=== PATIENT | male | born 1940 | race Caucasian/White ===

== ENCOUNTER 2023-01-19 09:54 | Day surgery (SDC) | payer MEDICARE, BC ==
[~2023-01-19 09:54] MED LIST: LACTATED RINGERS 1,000 ML IV SCH; SODIUM CHLORIDE 0.9% 1,000 ML IV SCH
[2023-01-19] MEDS ORDERED: SODIUM CHLORIDE 0.9% 1,000 ML IV ONE (10:07)
[2023-01-19 10:21] LABS: Basophils # (A) 0.1 k/uL (0-0.2); Basophils % (A) 1 %; Eosinophils # (A) 0.1 k/uL (0-0.7); Eosinophils % (A) 2 %; HCT 38.9 % (39.0-53.0); HGB 12.8 gm/dL (13.0-17.5); Lymphocytes % (A) 32 %; MCH 27.7 pg (25.0-35.0); MCHC 32.8 g/dL (31.0-37.0); MCV 84.7 fL (80.0-100.0); Monocytes # (A) 0.3 k/uL (0-1.0); Monocytes % (A) 5 %; Neutrophils # (A) 3.5 k/uL (1.3-7.7); Neutrophils % (A) 57 %; Platelet Count 355 k/uL (150-450); RDW 13.6 % (11.5-15.5); WBC 6.2 k/uL (3.8-10.6)
[2023-01-19 10:41] LABS: Calcium 9.4 mg/dL (8.4-10.2); Potassium 4.3 mmol/L (3.5-5.1)
[2023-01-19] MEDS ORDERED: MIDAZOLAM 2 MG/2 ML VIAL ONE (14:45)
[2023-01-19] MEDS ORDERED: fentaNYL (PF) 50 MCG/ML 2 ML AMP ONE (14:45)
[2023-01-19] MEDS ORDERED: KETAMINE 10 MG/ML 20 ML VIAL ONE (14:45)
[2023-01-19] MEDS ORDERED: IV FLUID CONTINUATION 1,000 ML IV ONE (14:49)
--- NOTE | 2023-01-19 15:15 | P.EPPROC ---
- EP Procedure Note Electrophysiology Procedure Note: Twelve-lead EKG Sinus mechanism heart rate 72 beats a minute normal UT interval narrow QRS, QT interval 400 ms Tilt table test per protocol Baseline blood pressure 139/78 mmHg, heart rate 71 beats a minute Patient was tilted upright at night left 70 per protocol blood pressure initially 130/75 mmHg the heart rate of 92 beats a minute Subsequently there was a slow but gradual, progressive decline in blood pressure Lowest blood pressure was 91/63 mmHg Maximal heart rate is 144 beats a minute When patient is laid supine his blood pressure normalized 115/67 mmHg and heart rate decreased to 87 beats a minute Impression Orthostatic hypotension syndrome Normal twelve-lead EKG
[2023-01-19] MEDS ORDERED: LIDOCAINE 1% INJ 10MG/ML (30 ML VIAL-PF) SQ ONE (15:20)
[2023-01-19] MEDS ORDERED: ISOPROTERENOL 250 MCG/1.25 ML SYR IV ONE (16:15)
--- NOTE | 2023-01-19 16:26 | P.HPCAR ---
History of Present Illness This is Dr. Olivera dictating an H/P on this patient The patient was interviewed and examined IMPRESSION / ASSESSMENT: Episode of syncope recently Episodes of atrial tachycardia on loop monitor 1 episode of PAF lasting for 2 minutes History of CVA left parietal lobe PLAN: Tilt table testing Diagnostic EP study for syncope evaluation HPI This is an 82-year-old male patient with a history of coronary artery disease history of cardio myopathy and a prior CVA of the left parietal lobe He had an episode of lightheadedness and loss of consciousness. He fell and hit his head against the wall He still has episodes of lightheadedness Denies any palpitations although his loop monitor has shown episodes of atrial tachycardia and brief episodes of atrial fibrillation In the past he had a CVA with a left parietal lobe stroke, cryptogenic stroke ROS: No fever chills or rigors, no cough, phlegm or expectoration, no nausea, vomiting or diarrhea, no hematuria, dysuria, no musculoskeletal complaints, no strokes or seizures, no skin lesions. EXAMINATION: Afebrile 97.8F, pulse rate 90 Blood pressure 158/81 mmHg Breath sounds are clear no rhonchi no crackles Heart sounds S1 and S2 are normal no murmurs Abdomen soft Lungs are clear No lower extremity edema REVIEW OF LABS, ECG & MEDICAL DATA Hemoglobin 8.8 Electrolytes normal Renal function normal Physical Exam Vitals: Vital Signs Temp Pulse Resp BP Pulse Ox 01/19/23 10:20 97.8 F 91 16 158/81 100 Intake and Output 01/19/23 01/19/23 01/19/23 06:59 14:59 22:59 Intake Total 300 Balance 300 Intake: IV 300 Past Medical History Past Medical History: Coronary Artery Disease (CAD), Deep Vein Thrombosis (DVT), Hyperlipidemia, Myocardial Infarction ([place]), Osteoarthritis (OA), Thyroid Disorder Additional Past Medical History / Comment(s): SEE CARDIAC HX BY MARY JANE. Last Myocardial Infarction Date:: UNKNOWN History of Any Multi-Drug Resistant Organisms: None Reported Past Surgical History: Bowel Resection, Heart Catheterization, Orthopedic Surgery Additional Past Surgical History / Comment(s): BOWEL RESECTION DONE, " THOUGHT IT WAS CANCER, BUT IT WASN'T). RIGHT SHOULDER. HOLLEY KNEE SCOPES. BILATERAL CATARACT REMOVAL/LENS Past Anesthesia/Blood Transfusion Reactions: No Reported Reaction Past Psychological History: No Psychological Hx Reported Smoking Status: Light tobacco smoker Past Alcohol Use History: Rare Past Drug Use History: None Reported Physical Examination Vital Signs Temp Pulse Resp BP Pulse Ox 01/19/23 10:20 97.8 F 91 16 158/81 100 Intake and Output 01/19/23 01/19/23 01/19/23 06:59 14:59 22:59 Intake Total 300 Balance 300 Intake: IV 300 Results 01/19/23 10:00 01/19/23 10:00 CBC 01/19/23 Range/Units 10:00 WBC 6.2 (3.8-10.6) k/uL RBC 4.60 (4.30-5.90) m/uL Hgb 12.8 L (13.0-17.5) gm/dL Hct 38.9 L (39.0-53.0) % Plt Count 355 (150-450) k/uL Comprehensive Metabolic Panel 01/19/23 Range/Units 10:00 Sodium 138 (137-145) mmol/L Potassium 4.3 (3.5-5.1) mmol/L Chloride 102 (98-107) mmol/L Carbon Dioxide 24 (22-30) mmol/L BUN 24 H (9-20) mg/dL Creatinine 1.07 (0.66-1.25) mg/dL Glucose 114 H (74-99) mg/dL Calcium 9.4 (8.4-10.2) mg/dL Current Medications Generic Name Dose Route Start Last Admin Trade Name Freq PRN Reason Stop Dose Admin Lactated Ringer's 1,000 mls @ 20 mls/hr 01/19/23 06:18 Lactated Ringers IV 02/18/23 06:19 .Q24H DAVID Sodium Chloride 1,000 mls @ 20 mls/hr 01/19/23 06:18 Saline 0.9% IV 02/18/23 06:19 .Q24H DAVID Intake and Output 01/19/23 01/19/23 01/19/23 06:59 14:59 22:59 Intake Total 300 Balance 300 Intake: IV 300 01/19/23 10:00 01/19/23 10:00
--- NOTE | 2023-01-19 17:06 | P.EPPROC ---
- EP Procedure Note Electrophysiology Procedure Note: Final impression and plan Based upon the tilt table test and the patient's history, the most likely reason for his syncopal spell was orthostatic hypotension syndrome as demonstrated on the tilt table test His diagnostic EP study revealed atrial fibrillation, organized rather than atrial tachycardia His loop monitor has shown short episodes of atrial fibrillation as well as along her episodes of atrial tachycardia. The diagnostic EP study confirms that this is actually atrial fibrillation He's had an embolic stroke last year in March and was evaluated at [facility] for this. I would recommend reducing the dose of aspirin to 81 mg once daily, consid eration for an Jenise for stroke prophylaxis Reduced dose of losartan to 12.5 g by mouth daily. At home he is still taking losartan 25 mg daily If he continues to have dizzy spells, then I will stop losartan completely Continue atorvastatin and keep LDL well below 70 mg/dL, close to 50 mg/dL Continue low-dose beta blockers for now Procedure Diagnoses EP study with attempted arrhythmia induction on and off Isuprel Indication for the procedure Episode of loss of consciousness History of atrial tachycardia documented on loop monitor History of cryptogenic stroke status post loop implant in the past Details Patient was brought to the EP lab in a fasting state. Written informed consent was obtained prior to the procedure Sinus cycle length 920 ms, NE interval 196 Mrs., QRS 112 ms and QT interval 3 Milliseconds AH 84 and HV 41 ms Sinus node recovery times at 600, 500, and 400 ms were 1224, 993 ms in 1258 ms respectively Corrected sinus node recovery times normal In the baseline state AV node Wenckebach block greater than 600 No evidence for slow pathway conduction VA Wenckebach block greater than 600 ms Atrial extra stimulation performed from the high right atrium and from the coronary sinus Long runs of organized atrial fibrillation was induced tachycardia cycle length 234 ms On Isuprel spontaneous right bundle branch block pattern is noted AV node Wenckebach block improved to 290 ms and VA Wenckebach block improved performed 10 ms AV node ERP 400\to 60 ms No inducible AV matt reentrant tachycardia Sheaths were then removed. Vascade hemostasis assured
[2023-01-19] MEDS ORDERED: ACETAMINOPHEN TAB 325 MG TAB PO PRN (17:08)
--- NOTE | 2023-01-19 17:08 | P.PRLE ---
RE: Paddy Colby Dear Bart Paddy Colby underwent a tilt table test and a diagnostic EP study for evaluation of syncope as well as documented atrial tachycardia on the loop monit or. Based upon the tilt table test and the patient's history, the most likely reason for his syncopal spell was orthostatic hypotension syndrome as demonstrated on the tilt table test His diagnostic EP study revealed atrial fibrillation, organized rather than atrial tachycardia His loop monitor has shown short episodes of atrial fibrillation as well as along her episodes of atrial tachycardia. The diagnostic EP study confirms that this is actually atrial fibrillation He's had an embolic stroke last year in March and was evaluated at [facility] for this. I would recommend reducing the dose of aspirin to 81 mg once daily, consideration for an Jenise for stroke prophylaxis Reduced dose of losartan to 12.5 g by mouth daily. At home he is still taking losartan 25 mg daily If he continues to have dizzy spells, then I will stop losartan completely Continue atorvastatin and keep LDL well below 70 mg/dL, close to 50 mg/dL Continue low-dose beta blockers for now Thank you for entrusting me with the care of the patient Warm regards Sincerely Jean Claude Olivera
[2023-01-19] MEDS ORDERED: ATORVASTATIN 40 MG TAB PO SCH (21:00)
[2023-01-19] MEDS ORDERED: LOSARTAN 25 MG TAB PO SCH (21:00)
[2023-01-19] MEDS ORDERED: METOPROLOL SUCCINATE (ER) 25 MG TAB.ER.24H PO SCH (21:00)
[2023-01-20] MEDS ORDERED: LEVOTHYROXINE 137 MCG TAB PO SCH (06:30)
[2023-01-20 07:40] VITALS: BP 130/71; PULSE 64; RESP 17; TEMP 97.4
--- NOTE | 2023-01-20 08:41 | DS ---
DISCHARGE SUMMARY HOSPITAL COURSE: Mr. Colby was admitted for evaluation for recurrent dizzy spells and syncope. He also has documented arrhythmia on the loop monitor which suggest atrial tachycardia. He underwent a tilt table test first, which showed evidence of orthostatic hypotension syndrome with a gradual but progressive decline in blood pressure over a 30-minute period on the tilt-table test. His 12-lead EKG was normal. CT interval was normal. Subsequently, he underwent a diagnostic EP study which showed a mildly abnormal AV node, normal sinus node function and inducible atrial fibrillation. The atrial fibrillation is an organized atrial fibrillation that has the superficial appearance of atrial tachycardia, but intracardiac electrograms are more consistent with atrial fibrillation. At this time, the episodes on his loop monitor shot and last for several minutes. He has had a history of an embolic stroke last year and the loop monitor was implanted for evaluation of cryptogenic stroke. He is already on atorvastatin 40 mg p.o. daily. He is doing well from a cardiac standpoint today and no chest discomfort, dizziness, lightheadedness. His groins have healed well. There is no hematoma. No tenderness. IMPRESSION: 1. History of recurrent dizzy spells and recent history of syncope. 2. Orthostatic hypotension syndrome, documented on tilt-table testing. 3. Mildly abnormal atrioventricular node function on EP study. 4. Inducible atrial fibrillation and then atrial tachycardia or atrial flutter on an EP study. 5. History of embolic stroke last in March of 2022, despite being on aspirin and atorvastatin. 6. Suggest repeat TSH level. 7. Repeat lipid panel. Keep LDL close to 50 mg/dL. 8. Reduce aspirin to 81 mg p.o. daily. Currently, the patient takes 2 baby aspirins. 9. Eliquis 5 mg twice daily for stroke prophylaxis in addition to a baby aspirin. 10.Reduce losartan to 12.5 mg p.o. daily at 6 p.m. in the evening. 11.Continue low-dose Toprol-XL 25 mg p.o. daily. 12.Continue levothyroxine at the current dose. We will see him again in the office in about 2 weeks. In the future once his atrial fibrillation episodes become longer, then we will consider an atrial fibrillation ablation. He has AV node dysfunction. Therefore, further maximization of AV matt drugs on adding antiarrhythmic drugs will not result in bradycardia. All further exacerbation of AV node disease. This was discussed with the patient at this time. He will be treated with medication observation only. He has a loop monitor and we will continue to monitor his atrial fibrillation episodes. JOAO / CHINO: [id number] /
[2023-01-20] MEDS ORDERED: ASPIRIN 81 MG PO SCH (09:00)
[2023-01-20] MEDS ORDERED: METOPROLOL SUCCINATE (ER) 25 MG TAB.ER.24H PO SCH (09:30)
[2023-01-20 16:38] LABS: Chol/HDL Ratio 2.51 Ratio; LDL Cholesterol,Calculated 39.8 mg/dL (0.0-131.0)
== END 2023-01-20 11:21 | disposition home or self-care (01) ==
LOC: CATHEP 09:54 → 4SSUR 16:14 → CATHEP 01-20 11:21
PROVIDERS: ATTEND Internal Medicine Clinical Cardiac Electrophysiology
DX: R55 Syncope and collapse (principal); I48.91 Unspecified atrial fibrillation; I25.10 Atherosclerotic heart disease of native coronary artery without angina pectoris; E78.5 Hyperlipidemia, unspecified; I25.2 Old myocardial infarction; M19.90 Unspecified osteoarthritis, unspecified site; E07.9 Disorder of thyroid, unspecified; F10.90 Alcohol use, unspecified, uncomplicated; Z98.84 Bariatric surgery status; Z98.890 Other specified postprocedural states; Z72.0 Tobacco use; Z79.890 Hormone replacement therapy; Z86.73 Personal history of transient ischemic attack (TIA), and cerebral infarction without residual deficits; Z79.899 Other long term (current) drug therapy
CPT/HCPCS: 93005; 93623; 93620; 93660; 80048; 80061; 84443; 85025; C1894; C1769 ×2; C1760; C1730 ×3; J2250; J2001; J3010